=== PATIENT | male | born 1970 | race Caucasian/White ===

== ENCOUNTER 2023-11-10 09:13 | Outpatient (CLI) | payer OTHER, SELFPAY ==
--- NOTE | ~2023-11-10 | XR_ITS ---
XR foot LT min 3V DATE: 11/10/2023 09:51 INDICATION: Status post transmetatarsal amputation TECHNIQUE: Standing 4 view examination COMPARISON: None FINDINGS: There is amputation at the proximal aspect of the first through fifth metatarsal bones. No fracture, dislocation, periosteal reaction or bone destruction is evident. Osteopenia. IMPRESSION: Status post transmetatarsal amputation Reviewed, dictated and finalized at location B.
== END 2023-11-10 09:14 ==
DX: Z89.432 Acquired absence of left foot (principal)
CPT/HCPCS: 73630